=== PATIENT | female | born 1940 | race Caucasian/White ===

== ENCOUNTER 2024-07-10 17:36 | Inpatient (IN) | payer MEDICARE, OTHER ==
--- NOTE | 2024-07-10 17:58 | ED ---
General Adult HPI - General Chief complaint: Fall Stated complaint: Fall/L Hip/Leg Pain Time Seen by Provider: 07/10/24 17:41 Source: patient, family, EMS, RN notes reviewed Mode of arrival: EMS Limitations: no limitations - History of Present Illness Initial comments: Patient is an 81-year-old female present to the emergency department with left hip pain. Patient was walking on a step when she caught her foot. Patient fell. Patient sustained left hip injury. Discomfort is significant with movement and mild at rest. No other i is bothering her. No headache. No neck or back pain. No other extremity injury. 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 No blood thinners. No headache. - Related Data Allergies Allergy/AdvReac Type Severity Reaction Status Date / Time phenytoin [From Dilantin] Allergy Unknown Verified 07/10/24 17:49 Childhood Sulfa (Sulfonamide Allergy Unknown Verified 07/10/24 17:49 Antibiotics) Review of Systems ROS Statement: Those systems with pertinent positive or pertinent negative responses have been documented in the HPI. ROS Other: All systems not noted in ROS Statement are negative. Constitutional: Denies: fever Eyes: Denies: eye pain ENT: Denies: ear pain Respiratory: Denies: cough Cardiovascular: Denies: chest pain Endocrine: Denies: fatigue Gastrointestinal: Denies: abdominal pain Genitourinary: Denies: dysuria Musculoskeletal: Reports: as per HPI Past Medical History Past Medical History: Hypertension History of Any Multi-Drug Resistant Organisms: None Reported Past Surgical History: Appendectomy, Cholecystectomy Past Psychological History: No Psychological Hx Reported Smoking Status: Never smoker Past Alcohol Use History: None Reported Past Drug Use History: None Reported General Exam Limitations: no limitations General appearance: alert, in no apparent distress Head exam: Present: atraumatic, normocephalic Eye exam: Present: normal appearance, PERRL, EOMI ENT exam: Present: normal oropharynx Neck exam: Present: normal inspection. Absent: tenderness, meningismus Respiratory exam: Present: normal lung sounds bilaterally Cardiovascular Exam: Present: regular rate, normal rhythm GI/Abdominal exam: Present: soft. Absent: tenderness Extremities exam: Present: tenderness (Left lateral hip), other (All extremities are neurovascular intact). Absent: full ROM (Left hip secondary to pain) Back exam: Present: normal inspection. Absent: tenderness Neurological exam: Present: alert. Absent: motor sensory deficit Psychiatric exam: Present: normal affect, normal mood Skin exam: Present: normal color Course Vital Signs 07/10/24 17:42 Temperature 97.3 F L Pulse Rate 60 Respiratory 20 Rate Blood Pressure 195/75 O2 Sat by Pulse 98 Oximetry Medical Decision Making - Medical Decision Making Was pt. sent in by a medical professional or institution (, SHAHRAM, JUNIOR PROJECT COORDINATOR, urgent care, hospital, or shelter...) When possible be specific @ -No Did you speak to anyone other than the patient for history (EMS, parent, family, police, friend...)? What history was obtained from this source @ -Family is present to help provide history including injury and past medical history Did you review nursing and triage notes (agree or disagree)? Why? @ -I reviewed and agree with nursing and triage notes Were old charts reviewed (outside hosp., previous admission, EMS record, old EKG, old radiological studies, urgent care reports/EKG's, shelter records)? Report findings @ -No old charts were reviewed Differential Diagnosis (chest pain, altered mental status, abdominal pain women, abdominal pain men, vaginal bleeding, weakness, fever, dyspnea, syncope, headache, dizziness, GI bleed, back pain, seizure, CVA, palpatations, mental health, musculoskeletal)? @ -M differential musculoskeletal differential Musculoskeletal Muscular strain, contusion, ligament sprain, fracture, arthritis, septic arthritis, bursitis, cellulitis, muscle spasm, nerve compression, DVT, arterial occlusion, herpes zoster, electrolyte abnormality, tumor.... This is not meant to be in all inclusive list EKG interpreted by me (3pts min.). @ -As above X-rays interpreted by me (1pt min.). @ -Chest x-ray shows no acute process. X-ray left hip and pelvis shows left IT fracture. CT interpreted by me (1pt min.). @ -CT scan of the brain reveals no acute abnormality U/S interpreted by me (1pt. min.). @ -None done What testing was considered but not performed or refused? (CT, X-rays, U/S, labs)? Why? @ -None What meds were considered but not given or refused? Why? @ -None Did you discuss the management of the patient with other professionals (professionals i.e. , PA, JUNIOR PROJECT COORDINATOR, lab, RT, psych nurse, social work job titles, do all operator, teacher, special loan officer, renal case manager)? Give summary @ -Case discussed with Dr. Bianchi who will admit covering orthopedic call with medical consult. N.p.o. after midnight. Was smoking cessation discussed for >3mins.? @ -No Was critical care preformed (if so, how long)? @ -No Were there social determinants of health that impacted care today? How? (Homelessness, low income, unemployed, alcoholism, drug addiction, transportation, low edu. Level, literacy, decrease access to med. care, correction, rehab)? @ -No Was there de-escalation of care discussed even if they declined (Discuss DNR or withdrawal of care, Hospice)? DNR status @ -No What co-morbidities impacted this encounter? (DM, HTN, Smoking, COPD, CAD, Cancer, CVA, ARF, Chemo, Hep., AIDS, mental health diagnosis, sleep apnea, morbid obesity)? @ -None Was patient admitted / discharged? Hospital course, mention meds given and route, prescriptions, significant lab abnormalities, going to OR and other pertinent info. @ -Patient presents with fall and left hip injury, left IT fracture on x-ray. Patient will be admitted with orthopedics. Admission orders written. Patient reevaluated. Patient and family updated. Undiagnosed new problem with uncertain prognosis? @ -No Drug Therapy requiring intensive monitoring for toxicity (Heparin, Nitro, Insulin, Cardizem)? @ -No Were any procedures done? @ -No Diagnosis/symptom? @ -Intertrochanteric fracture Acute, or Chronic, or Acute on Chronic? @ -Acute Uncomplicated (without systemic symptoms) or Complicated (systemic symptoms)? @ -Default Side effects of treatment? @ -No Exacerbation, Progression, or Severe Exacerbation? @ -No Poses a threat to life or bodily function? How? (Chest pain, USA, IA, pneumonia, PE, COPD, DKA, ARF, appy, cholecystitis, CVA, Diverticulitis, Homicidal, Suici mckenna, threat to staff... and all critical care pts) @ -No Disposition Clinical Impression: Trochanteric fracture Disposition: ADMITTED IP TO THIS HOSP Is patient prescribed a controlled substance at d/c from ED?: No Referrals: Nonstaff,Physician [Primary Care Provider] - 1-2 days Time of Disposition: 19:22
--- NOTE | 2024-07-10 18:34 | XR ---
EXAMINATION TYPE: XR chest 1V portable DATE OF EXAM: 07/10/2024 COMPARISON: None INDICATION: Fall, pain TECHNIQUE: Single frontal view of the chest is obtained. FINDINGS: The heart size is enlarged. The pulmonary vasculature is normal. The lungs are clear. No suspicious consolidation is evident. No large pneumothorax evident. Images i n the supine position which may obscure localization of a small pneumothorax. No acute osseous abnormality radiographically. IMPRESSION: 1. No acute pulmonary process. 2. No acute posttraumatic changes. [facility], , 07/10/2024 6:32 PM
--- NOTE | 2024-07-10 18:43 | XR ---
EXAMINATION TYPE: XR Hip LT and AP Pelvis DATE OF EXAM: 07/10/2024 COMPARISON: None HISTORY: Fall, pain TECHNIQUE: AP pelvis and two-view left hip FINDINGS: There is common with intertrochanteric fracture left hip. Femoral head articulates with the acetabulum. Proximal diaphyseal femur within the [id number] othe rwise appears unremarkable. Right femoral head articulates with the acetabulum. The right pubic symphysis is poorly visualized wi th underlying fecal debris and bowel gas. Fracture through this region difficult to exclude. Correlat e with location of patient's pain. IMPRESSION: 1. Comminuted intertrochanteric fracture left hip. 2. Clinical consideration for right pubic symphysis fracture is recommended [facility], , 07/10/2024 6:40 PM
--- NOTE | 2024-07-10 18:46 | CT ---
EXAMINATION TYPE: CT brain wo con DATE OF EXAM: 07/10/2024 COMPARISON: INDICATION: Fall, head and left hip injury DLP: 1039.6 mGycm, Automated exposure control for dose reduction was used. CONTRAST: None CT of the brain is performed utilizing 3 mm thick sections through the posterior fossa and 3 mm thick sections through the remaining calvarium. Study is performed within 24 hours of arrival to the hosp ital. No abnormal hyperdensity is present to suggest an acute intracranial hemorrhage. No mass lesion is evident. No acute infarcts are evident. Patchy periventricular white matter hypodensity is present, likely on the basis of chronic white matter ischemic changes. Ventricles and sulci are appropriate for the patient age. Paranasal sinuses and mastoid air cells within the [id number] are clear. IMPRESSION: 1. No acute intracranial process. Follow up MRI can be performed as clinically indicated. 2. Patchy. Periventricular white matter ischemic changes. [facility], , 07/10/2024 6:44 PM
[2024-07-10] MEDS ORDERED: NALOXONE 0.4 MG/ML 1 ML VIAL IV PRN (19:18)
[2024-07-10] MEDS: SODIUM CHLORIDE 0.9% 1,000 ML IV SCH (19:43)
[2024-07-10 19:52] LABS: Basophils # (A) 0.1 k/uL (0-0.2); Basophils % (A) 1 %; Eosinophils # (A) 0.1 k/uL (0-0.7); Eosinophils % (A) 1 %; HCT 38.9 % (34.0-46.0); HGB 12.8 gm/dL (11.4-16.0); Lymphocytes # (A) 0.9 k/uL (1.0-4.8); Lymphocytes % (A) 12 %; MCH 31.9 pg (25.0-35.0); MCV 96.6 fL (80.0-100.0); Mean Platelet Volume 9.6; Monocytes # (A) 0.3 k/uL (0-1.0); Monocytes % (A) 4 %; Neutrophils # (A) 6.4 k/uL (1.3-7.7); Neutrophils % (A) 82 %; Platelet Count 222 k/uL (150-450); RBC 4.03 m/uL (3.80-5.40); RDW 12.9 % (11.5-15.5); WBC 7.8 k/uL (3.8-10.6)
[2024-07-10 19:57] LABS: INR 1.1 (<1.2); Prothrombin Time 11.5 sec (10.0-12.5)
[2024-07-10 20:08] LABS: ALT 13 U/L (4-34); AST 30 U/L (14-36); African American GFR (CKD) >90 (>60 ml/min/1.73 sqM); Albumin 4.1 g/dL (3.5-5.0); Alkaline Phosphatase 79 U/L (38-126); Anion Gap 10 mmol/L; Blood Urea Nitrogen 23 mg/dL (7-17); Calcium 9.5 mg/dL (8.4-10.2); Carbon Dioxide 27 mmol/L (22-30); Chloride 101 mmol/L (98-107); Glucose 113 mg/dL (74-99); Non-African American GFR(CKD) 82 (>60 ml/min/1.73 sqM); Potassium 3.8 mmol/L (3.5-5.1); Sodium 138 mmol/L (137-145); Total Bilirubin 0.6 mg/dL (0.2-1.3); Total Protein 6.9 g/dL (6.3-8.2)
[2024-07-10] MEDS: traMADol 50 MG TAB PO PRN (20:18)
[2024-07-10] MEDS: FAMOTIDINE 20 MG TAB PO SCH (20:19)
[2024-07-10] MEDS: MORPHINE SULFATE 4 MG/ML SYRINGE IV PRN (20:54)
[2024-07-10] MEDS ORDERED: [UNRECOGNIZED DRUG - OTHER] PO SCH (21:00)
[2024-07-10] MEDS: VIT A,C & E-LUTEIN-MINERALS 1 EACH TAB PO SCH (23:20)
[2024-07-10] MEDS: SODIUM CHLORIDE 5% OPHTH OINT 3.5 GM TUBE BOTH EYES SCH (23:21)
[2024-07-11 00:15] LABS: Prothrombin Time 11.2 sec (10.0-12.5)
--- NOTE | 2024-07-11 00:19 | P.CONS ---
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 Denies any head injury or loss consciousness denies being on any blood thinners. She is visiting from [place] where she lives alone. Currently denies any chest pain trouble breathing dizziness lightheadedness palpitations nausea vomiting abdominal pain GI bleeding. Denies any tobacco smoking illicit drugs or heavy alcohol review of systems Pertinent positives as noted in HPI. All other systems were reviewed and are negative on exam Constitutional: No acute distress, conversant, pleasant Eyes: Anicteric sclerae, moist conjunctiva, Pupils equal round reactive to light ENMT: NC/AT Oropharynx clear, no erythema, or exudates Neck: Supple, no masses, or JVD No carotid bruits No thyromegaly Lungs: Clear to auscultation Clear to percussion Normal respiratory effort, no accessory muscle use Cardiovascular: Heart regular in rate and rhythm, No murmurs, gallops, or rubs No peripheral edema Abdominal: Soft Nontender, no guarding, rebound or rigidity Abdomen moving with respiration Normoactive bowel sounds Extremities: No digital cyanosis No clubbing Pedal pulses intact and symmetrical Radial pulses intact and symmetrical No calf tenderness Psychiatric: Alert and oriented to person, place and time Appropriate affect Neuro Muscles Strength 4/5 in all 4 extremities some limitations over the left lower extremity secondary to fracture and pain Sensation to light touch grossly present throughout Cranial nerves II-XII grossly intact Past Medical History Past Medical History: Hypertension History of Any Multi-Drug Resistant Organisms: None Reported Past Surgical History: Appendectomy, Cholecystectomy Past Psychological History: No Psychological Hx Reported Smoking Status: Never smoker Past Alcohol Use History: None Reported Past Drug Use History: None Reported Medications and Allergies Home Medications Medication Instructions Recorded Confirmed Type Aspirin EC [Ecotrin Low Dose] 81 mg PO DAILY 07/10/24 07/10/24 History Bloodbuilder Supplement 1 dose PO Q48H 07/10/24 07/10/24 History Elderberry 3,200mg 3,200 mg PO DAILY 07/10/24 07/10/24 History Multivitamins, Thera [Multivitamin 1 tab PO DAILY 07/10/24 07/10/24 History (formulary)] Sodium Chloride 5% Ophth Oint 1 applic BOTH EYES QID 07/10/24 07/10/24 History [Kaye 128] Triamterene/Hydrochlorothiazid 1 cap PO DAILY 07/10/24 07/10/24 History [Triamterene-Hctz 37.5-25 mg Cp] Vit C/E/Zn/Coppr/Lutein/Zeaxan 1 cap PO BID 07/10/24 07/10/24 History [Preservision Areds 2 Softgel] Allergies Allergy/AdvReac Type Severity Reaction Status Date / Time phenytoin [From Dilantin] Allergy Unknown Verified 07/10/24 19:48 Childhood Sulfa (Sulfonamide Allergy Unknown Verified 07/10/24 19:48 Antibiotics) Childhood succinylcholine AdvReac Unknown Verified 07/11/24 00:12 Physical Exam Vitals: Vital Signs Temp Pulse Resp BP Pulse Ox 07/10/24 21:10 97.8 F 63 18 141/72 96 07/10/24 20:31 61 16 185/74 97 07/10/24 17:42 97.3 F L 60 20 195/75 98 Intake and Output 07/10/24 07/10/24 07/10/24 06:59 14:59 22:59 Other: Weight 63.503 kg Results CBC & Chem 7: 07/10/24 19:35 07/10/24 19:35 Labs: Abnormal Lab Results - Last 24 Hours (Table) 07/10/24 07/10/24 Range/Units 19:35 19:35 Lymphocytes # 0.9 L (1.0-4.8) k/uL BUN 23 H (7-17) mg/dL Glucose 113 H (74-99) mg/dL Assessment and Plan Assessment: 83-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 Over the past 1 month she denies any heart attack congestive heart failure syncope arrhythmia. At baseline she is active able to climb a flight of stairs with no shortness of breath. Denies any history of stroke CAD CHF diabetes mellitus or CKD. Patient is scheduled for left hip repair versus of moderate perioperative cardiovascular risk. Patient may proceed to planned surgery with moderate to high risk secondary to her age and type of surgery with no modifiable risk factors at this time Of note patient has hereditary deficiency of pseudocholinesterase products like succinylcholine should be avoided Blood work reviewed CBC unremarkable white count 7.8 hemoglobin 12.8 Renal function unremarkable sodium 138 potassium 3.8 BUN 23 creatinine 0.6 Acute left hip fracture secondary to accidental fall Pain control DVT prophylaxis further management per primary orthopedic team Hypertension controlled Hold hydrochlorothiazide Hold aspirin CT of the brain in the ED showed no acute intracranial pathology Chest x-ray showed no acute cardiopulmonary process Thank you for this consultation
[2024-07-11] MEDS: cloNIDine HCL 0.2 MG TAB PO STA (04:07)
[2024-07-11] MEDS ORDERED: TRIAMTERENE-HCTZ 37.5-25MG 1 EACH CAP PO SCH (09:00)
[2024-07-11] MEDS ORDERED: ELDERBERRY PO SCH (09:00)
[2024-07-11] MEDS: MULTIVITAMINS, THERA 1 EACH TAB PO SCH (09:02)
--- NOTE | 2024-07-11 11:22 | P.PN ---
Subjective Progress Note Date: 07/11/24 Subjective: Patient seen and examined at bedside. No acute events overnight. Still complaining of severe left hip pain. Pertinent positives and negatives as discussed above, a complete review of systems was performed and all other systems are negative. Vitals Signs Reviewed. General: Nontoxic, no distress, appears at stated age Derm: Warm, dry Head: Atraumatic, normocephalic, symmetric Eyes: EOMI, no lid lag, anicteric sclera Mouth: No lip lesion, mucus membranes moist Cardiovascular: S1S2 reg, no murmur Lungs: CTA bilateral, no rhonchi, no rales, no accessory muscle use Abdominal: Soft, nontender to palpation, no guarding, no appreciable organomegaly Ext: Unable to move left lower extremity due to pain Neuro: CN II-XI grossly intact, no focal neuro deficits Psych: Alert, oriented, appropriate affect Data Reviewed Today: Pertinent Labs: No new labs this morning Imaging: No new imaging Assessment and Plan: Acute traumatic left hip fracture Mechanical fall Suspected pubic symphysis fracture -Likely surgery today -Pain control with oral Tylenol as needed, oral tramadol as needed, IV morphine as needed, monitor for sedation -Senna 8.6 daily ordered -Aspirin being held -Okay to continue normal saline while patient has n.p.o. -Patient is otherwise medically optimized for surgical procedure as highlighted in the consult note -CBC after surgery Pseudocholinesterase deficiency -Avoid products like succinylcholine Hypertension -Continue triamterene and hydrochlorothiazide 37.5-25 mg daily -Repeat BMP tomorrow Thank you for allowing us to participate in the care of this pleasant patient. Do not hesitate to contact us with questions. Someone can be reached from the [facility] hospitalist group all hours of the day at [phone] or via perfect serve. Objective - Vital Signs Vital signs: Vital Signs Temp 98.2 F 07/11/24 08:00 Pulse 88 07/11/24 08:00 Resp 16 07/11/24 08:00 BP 143/75 07/11/24 08:00 Pulse Ox 98 07/11/24 02:00 FiO2 Intake & Output 07/10/24 07/11/24 07/11/24 18:59 06:59 18:59 Weight 63.503 kg 63.503 kg Other: Voiding Method External Catheter - Labs CBC & Chem 7: 07/10/24 19:35 07/10/24 19:35 Labs: Abnormal Lab Results - Last 24 Hours (Table) 07/10/24 07/10/24 Range/Units 19:35 19:35 Lymphocytes # 0.9 L (1.0-4.8) k/uL BUN 23 H (7-17) mg/dL Glucose 113 H (74-99) mg/dL
--- NOTE | 2024-07-11 14:10 | P.HPOR ---
History of Present Illness H&P Date: 07/11/24 Chief Complaint: Left hip fracture Patient is pleasant 83 yo female seen at bedside this morning. She fell at her daughter's home yesterday and was admitted through ED last evening. She is from [place]. She has pain as expected at left hip. She denies numbness or other complaints. Past Medical History Past Medical History: Hypertension History of Any Multi-Drug Resistant Organisms: None Reported Past Surgical History: Appendectomy, Cholecystectomy Past Psychological History: No Psychological Hx Reported Smoking Status: Never smoker Past Alcohol Use History: None Reported Past Drug Use History: None Reported Medications and Allergies Home Medications Medication Instructions Recorded Confirmed Type Aspirin EC [Ecotrin Low Dose] 81 mg PO DAILY 07/10/24 07/10/24 History Bloodbuilder Supplement 1 dose PO Q48H 07/10/24 07/10/24 History Elderberry 3,200mg 3,200 mg PO DAILY 07/10/24 07/10/24 History Multivitamins, Thera [Multivitamin 1 tab PO DAILY 07/10/24 07/10/24 History (formulary)] Sodium Chloride 5% Ophth Oint 1 applic BOTH EYES QID 07/10/24 07/10/24 History [Kaye 128] Triamterene/Hydrochlorothiazid 1 cap PO DAILY 07/10/24 07/10/24 History [Triamterene-Hctz 37.5-25 mg Cp] Vit C/E/Zn/Coppr/Lutein/Zeaxan 1 cap PO BID 07/10/24 07/10/24 History [Preservision Areds 2 Softgel] Allergies Allergy/AdvReac Type Severity Reaction Status Date / Time phenytoin [From Dilantin] Allergy Unknown Verified 07/10/24 19:48 Childhood Sulfa (Sulfonamide Allergy Unknown Verified 07/10/24 19:48 Antibiotics) Childhood succinylcholine AdvReac Unknown Verified 07/11/24 00:12 Physical Examination Inspection of the lower extremities shows a shortened externally rotated left lower extremity. There are no wounds, erythema or ecchymoses. The knee is nontender without effusion. She has painless range of motion of the knee, ankle foot and toes. Range of motion of the left hip is not tested due to fracture. Neurovascular status is intact throughout the lower extremity with motor and sensation fully intact. Calf is soft and nontender. 2+ dorsalis pedis pulse and less than 2 second cap refill is present. Results Xray shows displaced left IT femur fracture - Labs Labs: Abnormal Lab Results - Last 24 Hours (Table) 07/10/24 07/10/24 Range/Units 19:35 19:35 Lymphocytes # 0.9 L (1.0-4.8) k/uL BUN 23 H (7-17) mg/dL Glucose 113 H (74-99) mg/dL H & H 07/10/24 Range/Units 19:35 Hgb 12.8 (11.4-16.0) gm/dL Hct 38.9 (34.0-46.0) % Coagulation 07/10/24 07/10/24 Range/Units 19:35 23:50 INR 1.1 1.0 (<1.2) Result Diagrams: 07/10/24 19:35 07/10/24 19:35 - Diagnostic results Hip x-ray: report reviewed, image reviewed Assessment and Plan (1) Trochanteric fracture Narrative/Plan: Patient discussed with Dr. Bianchi. Plan is to proceed with surgical intervention this afternoon including Gamma Nail for left IT fracture. The procedure, risks and benefits were discussed with patient. She desires to proceed. She will resume post op ortho protocol and may benefit from placement Current Visit: Yes Status: Acute Code(s): S72.109A - UNSP TROCHANTERIC FRACTURE OF UNSP FEMUR, INIT FOR CLOS FX SNOMED Code(s): 796804531 Time with Patient: Less than 30
[2024-07-11] MEDS: IV FLUID CONTINUATION 1,000 ML IV ONE (15:20)
[2024-07-11] MEDS: DEXAMETHASONE SOD PHOSPHATE 4 MG/ML 1 ML VIAL IVP STA (15:26)
[2024-07-11] MEDS: ONDANSETRON 4 MG/2 ML VIAL IVP STA (15:26)
[2024-07-11] MEDS ORDERED: hydrALAZINE HCL 20 MG/ML 1 ML VIAL ONE (15:45)
[2024-07-11] MEDS ORDERED: ceFAZolin 1 GM/50 ML BAG (PMX) ONE (15:45)
[2024-07-11] MEDS ORDERED: GLYCOPYRROLATE 0.2 MG/ML 2 ML VIAL ONE (15:45)
[2024-07-11] MEDS ORDERED: KETAMINE HCL IN 0.9 % NACL 50 MG/5 ML SYRINGE ONE (15:45)
[2024-07-11] MEDS ORDERED: ePHEDrine 50 MG/ML 1 ML VIAL ONE (15:45)
[2024-07-11] MEDS ORDERED: ONDANSETRON 4 MG/2 ML VIAL IVP PRN (16:03)
[2024-07-11] MEDS ORDERED: bisacodyL 10 MG SUPP RECTAL PRN (16:03)
[2024-07-11] MEDS ORDERED: NA PHOS,M-B/NA PHOS,DI-BA 133 ML ENEMA RECTAL PRN (16:03)
[2024-07-11] MEDS ORDERED: HYDROmorphone 0.5 MG/0.5 ML SYRINGE IVP PRN ×3 (16:03)
[2024-07-11] MEDS ORDERED: MAGNESIUM HYDROXIDE 2,400 MG/30 ML CUP PO PRN (16:03)
[2024-07-11] MEDS: ceFAZolin 1,000 MG in SODIUM CHLORIDE 0.9% 1,000 ML IRRIGATION ONE (16:44)
--- NOTE | 2024-07-11 17:14 | XR ---
Fluoroscopy INDICATION: Left hip pain FINDINGS: Fluoroscopy time: 57.3 seconds. Total dose area product (DAP) in uGy*m?, mGy*cm? (or similar): 1.6867 Images obtained: 4. Intertrochanteric fracture repair. IMPRESSION: 1. Documentation of fluoroscopy. [facility] , 07/11/2024 5:12 PM
[2024-07-11] MEDS: SODIUM CHLORIDE 0.9% 1,000 ML IV SCH (18:12)
[2024-07-11] MEDS: ASPIRIN 81 MG PO SCH (20:39)
[2024-07-11] MEDS: SENNOSIDES-DOCUSATE SODIUM 1 EACH TAB PO SCH (20:39)
[2024-07-11] MEDS: HYDROcodone/APAP 5-325MG 1 EACH TAB PO PRN (20:56)
--- NOTE | 2024-07-11 23:25 | OP ---
OPERATIVE REPORT DATE OF SERVICE : 07/11/2024 CALENDER ROLL OPERATOR: Felix Joshi PA-C. PREOPERATIVE DIAGNOSIS: Left intertrochanteric hip fracture. POSTOPERATIVE DIAGNOSIS: Left intertrochanteric hip fracture. PROCEDURE: Left intramedullary hip screw fixation for intertrochanteric hip fracture. ANESTHESIA: Spinal with sedation. ESTIMATED BLOOD LOSS: 25 cc. TOURNIQUET: None. DRAINS: None. COMPLICATIONS: None apparent. DISPOSITION: Postanesthesia care unit. INDICATIONS: Angela is a very pleasant 83-year-old female from [place], [place], who was visiting here in town with family. She fell yesterday, had immediate left hip pain. Brought via ambulance to [facility]. Workup including x-rays revealed a displaced left intertrochanteric hip fracture. She was then admitted to our service. She is an independent ambulator at home back in [place]. The recommendation was for intramedullary hip screw fixation for her intertrochanteric hip fracture. The risks of procedure were discussed with both her and her daughter. These risks included but were not limited to risk of infection, nerve damage, bleeding, pain, and a small risk of deep vein thrombosis which could lead to fatal pulmonary embolism. Further risks include failure of the fracture to heal and failure of the hardware which could necessitate further operation. All of her questions with regard to the risks of procedure were answered to her satisfaction. Appropriate informed consent was obtained. DESCRIPTION OF PROCEDURE: The patient was identified in the preoperative holding area. Surgical site was marked by both the patient and myself. She was given 2 g of Ancef IV for prophylactic purposes. She was then transported to the operative suite. She was placed supine on the operating table. A spinal anesthetic was then administered and dosed per the anesthesia without apparent complication. She was then placed onto the fracture table, well-padded in preparation for surgery. Her legs were appropriately padded. The fracture was then reduced utilizing fluoroscopy. This was done with traction and rotation. When I was happy with near anatomic reduction, we proceeded. The patient's left lower extremity was then prepped and draped in usual sterile fashion. Standard surgical pause undertaken to ensure that we were operating the correct site and appropriate preoperative antibiotics had been given. All staff in room were in agreement, and we proceeded. The tip of the greater trochanter was then identified via fluoroscopy. An approximate 3 cm incision starting at the tip of the greater trochanter and extending proximally in line with the shaft of the femur was then made. Dissection carried down sharply to the tensor fascia. The tensor fascia was then incised in line with the incision. This gave good access to the tip of the greater trochanter. The starting awl with the starting pin was then placed on the medial aspect of the tip of the greater trochanter. The threaded guide pin was then advanced down the center of the femur on both AP and lateral. This was confirmed on both AP and lateral views. I then utilized a starting drill. The starting drill was then advanced just to the superior aspect of the lesser trochanter. This gave access to the proximal femur. The threaded guide pin was then removed. A ball-tipped guidewire was then placed through the opening hole and down the center of the femur. Again, its placement intramedullary was confirmed with fluoroscopic imaging. I then reamed the canal to except the gamma nail. I started with a 9 mm reamer and incrementally increased up to a 13 mm reamer. I then had the had the leather goods sales representative open an 11 mm x 180 mm x 125 degree Hawley gamma 3 nail. This was placed onto the broom stitcher on the back table. It was then inserted over the ball-tipped guidewire. The ball-tipped guide was removed. I then proceeded to place the hip screw. A 2nd small incision was then made on the lateral thigh. The guide was placed flush against the lateral cortex of the femur. The threaded guide pin was then placed through the nail and into the center of the femoral head on both AP and lateral views. The tip-apex distance was appropriate. I then measured for length, measured to 95 mm. The over-drill was then set to 95 mm. The threaded guide pin was then over-drilled under fluoroscopic imaging to 95 mm. I then had the leather goods sales representative open a 95 mm partially-threaded hip screw. The hip screw was then advanced over the threaded guide pin. She had excellent purchase into the femoral head. The screw was placed deep into the center of the femoral head on both AP and lateral views. The tip-apex distance was appropriate and it was through the nail. I then placed the set screw. The set screw was then tightened down fully and then backed off 1/4 turn to allow for dynamic compression at the fracture site. I then proceeded to place the distal screw. I then placed a 35 mm x 5 mm screw through the static portion of the distal hole of the nail. Again, its placement was confirmed with fluoroscopic imaging that the screw was through the nail and was of appropriate length. At this point, we proceeded with final fluoroscopic imaging. The nail was placed intramedullary. The hip screw was through the nail and deep into the center of the femoral head on both AP and lateral views. The tip-apex distance was appropriate. The distal screw was of appropriate length and also through the nail. The femoral rotation was deemed to be appropriate as well. At this point time, no further work was deemed necessary. The wounds were thoroughly irrigated. The inserting guide was removed. The wounds were thoroughly irrigated with sterile saline solution and antibiotic added via pulse lavage. The tensor fascia was closed with 0 Vicryl interrupted suture. The subcutaneous tissue was closed with 2-0 Vicryl interrupted suture and the skin was closed with stainless steel patti. Sterile compressive dressings were applied. All sponge and needle counts were deemed correct prior to closure. The patient tolerated the procedure without apparent complication. She was transferred to recovery room in stable condition. MMODL / IJN: [id number] /
[2024-07-12 08:48] LABS: Basophils # (A) 0.02 X 10*3/uL (0.00-0.10); Basophils % (A) 0.2 %; Eosinophils # (A) 0 X 10*3/uL (0.04-0.35); Eosinophils % (A) 0 %; HCT 31.4 % (37.2-46.3); HGB 10.3 g/dL (12.0-15.0); Lymphocytes # (A) 0.59 X 10*3/uL (0.90-5.00); Lymphocytes % (A) 5.5 %; MCH 31.9 pg (27.0-32.0); MCHC 32.8 g/dL (32.0-37.0); MCV 97.2 FL (80.0-97.0); Mean Platelet Volume 12.2 FL (9.5-12.2); Monocytes # (A) 0.66 X 10*3/uL (0.20-1.00); Monocytes % (A) 6.1 %; NRBC Per 100 WBC 0 X 10*3/uL (0.00-0.01); Neutrophils # (A) 9.43 X 10*3/uL (1.80-7.70); Neutrophils % (A) 87.6 %; Platelet Count 180 X 10*3/uL (140-440); RBC 3.23 X 10*6/uL (4.10-5.20); RDW 13.2 % (11.5-14.5); WBC 10.76 X 10*3/uL (4.50-10.00)
[2024-07-12 08:52] LABS: Blood Urea Nitrogen 15.4 mg/dL (9.0-27.0); Calcium 8.1 mg/dL (8.7-10.3); Carbon Dioxide 22.8 mmol/L (21.6-31.8); Chloride 105 mmol/L (96-109); Glucose 155 mg/dL (70-110); Potassium 3.4 mmol/L (3.5-5.5); Sodium 140 mmol/L (135-145)
[2024-07-12] MEDS: SENNOSIDES 8.6 MG TAB PO SCH (09:18)
[2024-07-12] MEDS: TRIAMTERENE-HCTZ 37.5-25MG 1 EACH CAP PO SCH (09:20)
--- NOTE | 2024-07-12 12:57 | P.PN ---
Subjective Progress Note Date: 07/12/24 Principal diagnosis: Left IT hip fracture Patient is seen at bedside this morning. He is postop day #1 from Gamma nail for left IT fracture. She has pain at the surgical site as expected but denies any new complaints. She denies numbness, tingling or calf pain. Review of syst ems is negative for fever, chills, chest pain, shortness of breath or other Objective - Vital Signs Vital signs: Vital Signs Temp 98.2 F 07/12/24 08:00 Pulse 74 07/12/24 08:00 Resp 17 07/12/24 08:00 BP 151/67 07/12/24 08:00 Pulse Ox 96 07/12/24 08:00 FiO2 Intake & Output 07/11/24 07/12/24 07/12/24 18:59 06:59 18:59 Intake Total 701 120 Output Total 245 450 Balance 456 -450 120 Weight 63.503 kg Intake: IV 701 Oral 120 Output: Urine 220 450 Estimated Blood Loss 25 Other: Voiding Method External Catheter Indwelling Catheter - Exam Inspection reveals a benign surgical wound. There is no active bleeding or drainage. Neurovascular status is intact throughout the lower extremity with motor and sensation fully intact. Calf is soft and nontender. 2+ dorsalis pedis pulse and less than 2 second cap refill is present. - Constitutional General appearance: Present: no acute distress - Labs CBC & Chem 7: 07/12/24 04:59 07/12/24 04:59 Labs: Abnormal Lab Results - Last 24 Hours (Table) 07/12/24 07/12/24 Range/Units 04:59 04:59 WBC 10.76 H (4.50-10.00) X 10*3/uL RBC 3.23 L (4.10-5.20) X 10*6/uL Hgb 10.3 L (12.0-15.0) g/dL Hct 31.4 L (37.2-46.3) % MCV 97.2 H (80.0-97.0) FL Immature Gran # 0.06 H (0.00-0.04) X 10*3/uL Neutrophils # 9.43 H (1.80-7.70) X 10*3/uL Lymphocytes # 0.59 L (0.90-5.00) X 10*3/uL Eosinophils # 0 L (0.04-0.35) X 10*3/uL Potassium 3.4 L (3.5-5.5) mmol/L Anion Gap 12.20 H (4.00-12.00) mmol/L BUN/Creatinine Ratio 22.00 H (12.00-20.00) Ratio Glucose 155 H (70-110) mg/dL Calcium 8.1 L (8.7-10.3) mg/dL Assessment and Plan (1) Trochanteric fracture Narrative/Plan: She will continue with routine postop orthopedic protocol including pain management, wound care, PT, DVT prophylaxis and medical management. Expect that he will transfer to ECF in next 1-2 days Current Visit: Yes Status: Acute Priority: Medium Code(s): S72.109A - UNSP TROCHANTERIC FRACTURE OF UNSP FEMUR, INIT FOR CLOS FX SNOMED Code(s): 054011419 Time with Patient: Less than 30
--- NOTE | 2024-07-12 14:27 | P.PN ---
Subjective Progress Note Date: 07/12/24 Subjective: No new complaints. Patient is medically cleared for discharge Vitals Signs Reviewed. Gen: In NAD, non-toxic HEENT: normocephalic, atraumatic, hearing acuity is intant, mucous membranes moist CVS: perfusing all extremities well, no pitting edema, Respiratory: symmetric chest expansion, no accessory muscle use, GI: soft, NTTP, ND, : no suprapubic tenderness, no CVA tenderness MSK/Derm: no rashes, cyanosis Neuro: CN II-XII intact, no motor weakness, Psych: cooperative, euthymic mood, judgment and insight is intact Data Reviewed Today: Pertinent Labs: No new labs this morning Imaging: No new imaging Assessment and Plan: Acute traumatic left hip fracture Mechanical fall Suspected pubic symphysis fracture -Likely surgery today -Pain control with oral Tylenol as needed, oral tramadol as needed, IV morphine as needed, monitor for sedation -Senna 8.6 daily ordered -Aspirin being held -Okay to continue normal saline while patient has n.p.o. -Patient is otherwise medically optimized for surgical procedure as highlighted in the consult note -CBC after surgery -medically cleared for discharge Pseudocholinesterase deficiency -Avoid products like succinylcholine Hypertension -Continue triamterene and hydrochlorothiazide 37.5-25 mg daily -Repeat BMP tomorrow Thank you for allowing us to participate in the care of this pleasant patient. Do not hesitate to contact us with questions. Someone can be reached from the [facility] hospitalist group all hours of the day at [phone] or via perfect serve. Objective - Vital Signs Vital signs: Vital Signs Temp 98.2 F 07/12/24 08:00 Pulse 74 07/12/24 08:00 Resp 17 07/12/24 08:00 BP 151/67 07/12/24 08:00 Pulse Ox 96 07/12/24 08:00 FiO2 Intake & Output 07/11/24 07/12/24 07/12/24 18:59 06:59 18:59 Intake Total 701 120 Output Total 245 450 280 Balance 456 -450 -160 Weight 63.503 kg Intake: IV 701 Oral 120 Output: Urine 220 450 280 Estimated Blood Loss 25 Other: Voiding Method External Catheter Indwelling Catheter - Labs CBC & Chem 7: 07/12/24 04:59 07/12/24 04:59 Labs: Abnormal Lab Results - Last 24 Hours (Table) 07/12/24 07/12/24 Range/Units 04:59 04:59 WBC 10.76 H (4.50-10.00) X 10*3/uL RBC 3.23 L (4.10-5.20) X 10*6/uL Hgb 10.3 L (12.0-15.0) g/dL Hct 31.4 L (37.2-46.3) % MCV 97.2 H (80.0-97.0) FL Immature Gran # 0.06 H (0.00-0.04) X 10*3/uL Neutrophils # 9.43 H (1.80-7.70) X 10*3/uL Lymphocytes # 0.59 L (0.90-5.00) X 10*3/uL Eosinophils # 0 L (0.04-0.35) X 10*3/uL Potassium 3.4 L (3.5-5.5) mmol/L Anion Gap 12.20 H (4.00-12.00) mmol/L BUN/Creatinine Ratio 22.00 H (12.00-20.00) Ratio Glucose 155 H (70-110) mg/dL Calcium 8.1 L (8.7-10.3) mg/dL
[2024-07-12] MEDS: ACETAMINOPHEN TAB 325 MG TAB PO PRN (22:28)
[2024-07-13] MEDS: HYDROcodone/APAP 10-325MG 1 EACH TAB PO PRN (09:43)
[2024-07-13] MEDS: FAMOTIDINE 20 MG TAB PO SCH (09:44)
--- NOTE | 2024-07-13 12:46 | P.DS ---
Providers Date of admission: 07/10/24 19:14 Expected date of discharge: 07/13/24 Attending physician: Thierry Bianchi Consults: 07/10/24 19:18 Consult Physician Urgent Consulting Provider: Dorian Haley Consult Reason/Comments: medical clearance Do you want consulting provider notified?: Yes Primary care physician: Physician Nonstaff - Discharge Diagnosis(es) (1) Trochanteric fracture Patient was admitted to the OR on 07/11/24 to undergo a gamma nail for Left IT femur fracture. She had suffered a fall at home resulting in left hip fracture. She desired to proceed with surgery after given informed consent. She underwent the above procedure which he tolerated well without complication. Postoperative hospital course has remained without complication. On day of discharge she is afebrile, vital signs stable, labs within acceptable ranges, tolerating by mouth meds and diet, voiding without difficulty, positive flatus, denies abdominal pain or calf pain, pain is controlled on oral pain medication and has no new complaints. Wound is benign, neurovascular status is intact, calf is soft and nontender, abdomen soft and nontender. Review of systems is negative for numbness, tingling, fever, chills, chest pain, shortness of breath, nausea, vomiting, dizziness, headaches, slurred speech or other. Current Visit: Yes Status: Acute Priority: Medium Procedures: Gamma Nail left Hip Patient Condition at Discharge: Good Plan - Discharge Summary Discharge Rx Participant: No New Discharge Prescriptions: New Acetaminophen Tab [Tylenol] 650 mg PO Q6HR PRN tab PRN Reason: Mild Pain Or Fever > 100.5 Aspirin [Adult Low Dose Aspirin EC] 81 mg PO BID #60 tab Docusate [Colace] 100 mg PO BID #60 capsule HYDROcodone/APAP 7.5-325MG [[place] 7.5-325] 1 - 2 each PO Q6HR PRN #32 tab PRN Reason: Pain Ondansetron [Zofran] 4 mg PO Q8HR PRN #21 tab PRN Reason: Nausea Continue Vit C/E/Zn/Coppr/Lutein/Zeaxan [Preservision Areds 2 Softgel] 1 cap PO BID Multivitamins, Thera [Multivitamin (formulary)] 1 tab PO DAILY Bloodbuilder Supplement 1 dose PO Q48H Elderberry 3,200mg 3,200 mg PO DAILY Aspirin EC [Ecotrin Low Dose] 81 mg PO DAILY Triamterene/Hydrochlorothiazid [Triamterene-Hctz 37.5-25 mg Cp] 1 cap PO DAILY Sodium Chloride 5% Ophth Oint [Kaye 128] 1 applic BOTH EYES QID Discharge Medication List Aspirin EC [Ecotrin Low Dose] 81 mg PO DAILY 07/10/24 [History] Bloodbuilder Supplement 1 dose PO Q48H 07/10/24 [History] Elderberry 3,200mg 3,200 mg PO DAILY 07/10/24 [History] Multivitamins, Thera [Multivitamin (formulary)] 1 tab PO DAILY 07/10/24 [History] Sodium Chloride 5% Ophth Oint [Kaye 128] 1 applic BOTH EYES QID 07/10/24 [History] Triamterene/Hydrochlorothiazid [Triamterene-Hctz 37.5-25 mg Cp] 1 cap PO DAILY 07/10/24 [History] Vit C/E/Zn/Coppr/Lutein/Zeaxan [Preservision Areds 2 Softgel] 1 cap PO BID 07/10/24 [History] Acetaminophen Tab [Tylenol] 650 mg PO Q6HR PRN tab 07/13/24 [Rx] Aspirin [Adult Low Dose Aspirin EC] 81 mg PO BID #60 tab 07/13/24 [Rx] Docusate [Colace] 100 mg PO BID #60 capsule 07/13/24 [Rx] HYDROcodone/APAP 7.5-325MG [[place] 7.5-325] 1 - 2 each PO Q6HR PRN #32 tab 07/13/24 [Rx] Ondansetron [Zofran] 4 mg PO Q8HR PRN #21 tab 07/13/24 [Rx] Follow up Appointment(s)/Referral(s): Lakisha Key, [NON-STAFF] - As Needed Nonstaff,Physician [Primary Care Provider] - 1-2 days Thierry Bianchi MD [STAFF PHYSICIAN] - 10 Days Activity/Diet/Wound Care/Special Instructions: Touchdown Weight bear as tolerated with walker May shower after 3 days if no bleeding Keep wound clean and dry Take meds as directed F/U with Dr. Bianchi in office Discharge Disposition: TRANSFER TO SNF/F
[2024-07-13 14:54] VITALS: BP 157/77; PULSE 77; RESP 20; TEMP 97.9
--- NOTE | 2024-07-13 17:40 | P.PN ---
Subjective Progress Note Date: 07/13/24 Subjective: No new complaints. Patient is medically cleared for discharge Vitals Signs Reviewed. Gen: In NAD, non-toxic HEENT: normocephalic, atraumatic, hearing acuity is intant, mucous membranes moist CVS: perfusing all extremities well, no pitting edema, Respiratory: symmetric chest expansion, no accessory muscle use, GI: soft, NTTP, ND, : no suprapubic tenderness, no CVA tenderness MSK/Derm: no rashes, cyanosis Neuro: CN II-XII intact, no motor weakness, Psych: cooperative, euthymic mood, judgment and insight is intact Data Reviewed Today: Pertinent Labs: No new labs this morning Imaging: No new imaging Assessment and Plan: Acute traumatic left hip fracture Mechanical fall Suspected pubic symphysis fracture -Likely surgery today -Pain control with oral Tylenol as needed, oral tramadol as needed, IV morphine as needed, monitor for sedation -Senna 8.6 daily ordered -Aspirin being held -Okay to continue normal saline while patient has n.p.o. -Patient is otherwise medically optimized for surgical procedure as highlighted in the consult note -CBC after surgery -medically cleared for discharge Pseudocholinesterase deficiency -Avoid products like succinylcholine Hypertension -Continue triamterene and hydrochlorothiazide 37.5-25 mg daily -Repeat BMP tomorrow Thank you for allowing us to participate in the care of this pleasant patient. Do not hesitate to contact us with questions. Someone can be reached from the [facility] hospitalist group all hours of the day at [phone] or via perfect serve. Objective - Vital Signs Vital signs: Vital Signs Temp 97.9 F 07/13/24 13:13 Pulse 77 07/13/24 13:13 Resp 20 07/13/24 13:13 BP 157/77 07/13/24 13:13 Pulse Ox 95 07/13/24 13:13 FiO2 Intake & Output 07/12/24 07/13/24 07/13/24 18:59 06:59 18:59 Intake Total 370 2340 Output Total 280 850 Balance 90 1490 Intake: Oral 370 2340 Output: Urine 280 850 Other: Voiding Method Toilet Toilet Bedside Commode # Voids 1 2 - Labs CBC & Chem 7: 07/12/24 04:59 07/12/24 04:59
--- NOTE | 2024-07-19 07:56 | FL ---
Fluoroscopy INDICATION: Left hip pain FINDINGS: Fluoroscopy time: 57.3 seconds. Total dose area produ ct (DAP) in uGy*m?, mGy*cm? (or similar): 1.6867 Images obtained: 4. Intertrochanteric fracture jana tovar IMPRESSION: 1. Documentation of fluoroscopy. [facility], , 07/19/2024 7:54 AM
== END 2024-07-13 15:38 | DRG 956 ==
LOC: EC 17:36 → 4SSUR 19:14
PROVIDERS: ADMIT Orthopaedic Surgery Sports Medicine; ATTEND Orthopaedic Surgery Sports Medicine
PROC: 0QS706Z Reposition Left Upper Femur with Intramedullary Internal Fixation Device, Open Approach (ICD-10-PCS; principal; 2024-07-11 12:50)
DX: S72.142A Displaced intertrochanteric fracture of left femur, initial encounter for closed fracture (principal); S32.501A Unspecified fracture of right pubis, initial encounter for closed fracture; E88.09 Other disorders of plasma-protein metabolism, not elsewhere classified; I10 Essential (primary) hypertension; W01.198A Fall on same level from slipping, tripping and stumbling with subsequent striking against other object, initial encounter; Y92.000 Kitchen of unspecified non-institutional (private) residence as the place of occurrence of the external cause; Z79.82 Long term (current) use of aspirin; Z79.899 Other long term (current) drug therapy
CPT/HCPCS: 36415; 70450; 71045; 73502; 80048; 80053; 85025; 85610; 93005; 96361; 96374; 99285